=== PATIENT | female | born 1985 | race American Indian/Alaskan Native ===

== ENCOUNTER 2016-11-30 14:13 | Emergency (ER) | payer MEDICAID ==
[2016-11-30 17:49] VITALS: BP 131/75
[2016-11-30] MEDS ORDERED: MOTRIN PO ONE (18:37)
[2016-11-30] MEDS ORDERED: TYLENOL/CODEINE PO ONE (18:37)
--- NOTE | 2016-11-30 18:39 | Emergency Department Report ---
HPI - General Chief Complaint: Eye Problems Time Seen by Provider: 11/30/16 18:13 - HPI HPI: 31-year-old female presents to ED complaining of right eye swelling and pain for the past 3 days. Patient states she is also swelling on her right lower lead. Patient states in the morning she usually noticed a yellow crust or drainage from that eye. Patient states today she is able to open due to decreased amount of crust. She denies fevers/chills/nausea/vomiting/abdominal pain/shortness of breath/ chest pain/headache/blurred vision/loss of vision/foreign object in eye. ED Past Medical Hx - Social History Smoking Status: Never Smoker Substance Use Type: None - Medications Home Medications: Home Medications Medication Instructions Recorded Confirmed Last Taken Type Erythromycin [Erythromycin Ophth 1 applic OP TID #1 tube 11/30/16 Unknown Rx Oint] Ibuprofen [Motrin 800 MG tab] 800 mg PO TID #30 tablet 11/30/16 Unknown Rx ED Review of Systems ROS: Stated complaint: RT EYE PAIN Other details as noted in HPI Constitutional: denies: chills, fever Eyes: denies: eye pain, eye discharge, vision change ENT: denies: ear pain, throat pain Respiratory: denies: cough, shortness of breath, wheezing Cardiovascular: denies: chest pain, palpitations Endocrine: no symptoms reported Gastrointestinal: denies: abdominal pain, nausea, vomiting, diarrhea Genitourinary: denies: urgency, dysuria, frequency, hematuria, discharge Musculoskeletal: denies: back pain, joint swelling, arthralgia Skin: denies: rash, lesions Neurological: denies: headache, weakness, paresthesias Psychiatric: denies: anxiety, depression Hematological/Lymphatic: denies: easy bleeding, easy bruising Physical Exam - Physical Exam Vital Signs: Vital Signs 11/30/16 11/30/16 14:31 17:48 Temperature 98.3 F 98.1 F Pulse Rate 106 H 80 Respiratory 16 16 Rate Blood Pressure 144/93 Blood Pressure 131/75 [Left] O2 Sat by Pulse 99 100 Oximetry Physical Exam: GENERAL: Alert and oriented x3, no apparent distress, Normal Gait, atraumatic. HEAD: Head is normocephalic and a-traumatic. EYES: Extra ocular muscles are intact. Pupils are equal, round, and reactive to light and accommodation. Right lower eyelid swollen, erythematous, tender to palpation. Sclerae is white, no active discharge. No foreign object in eye. MOUTH:Mouth is well hydrated and without lesions. Tonsils nonerythematous or swollen, Uvula midline, Tongue not elevated. Mucous membranes are moist. Posterior pharynx clear, no exudate or lesions. Patent airways. No TMJ tenderness LUNGS: Symetrical with respiration, No wheezing, no rales or crackles, CTAB. HEART: S1, S2 present, regular rate and rhythm without murmur, no rubs, no gallops. SKIN: Warm and dry, No lesions, No ulceration or induration present. ED Course Vital Signs 11/30/16 11/30/16 14:31 17:48 Temperature 98.3 F 98.1 F Pulse Rate 106 H 80 Respiratory 16 16 Rate Blood Pressure 144/93 Blood Pressure 131/75 [Left] O2 Sat by Pulse 99 100 Oximetry ED Medical Decision Making - Medical Decision Making 31-year-old female presents with right lower lid blephritis ED course: Patient received 800 mg of Motrin for pain. Discussed with patient will need antibiotic therapy for right eye. Discussed patient to follow up with primary care physician in 5-7 days Discussed the patient have worsening symptoms to return to ED. Vision is intact bilaterally. Vital signs are normal patient is in no acute distress. Critical care attestation.: If time is entered above; I have spent that time in minutes in the direct care of this critically ill patient, excluding procedure time. ED Disposition Clinical Impression: Blepharitis of eyelid of right eye Qualifiers: Blepharitis type: unspecified type Eyelid: lower Qualified Code(s): H01.002 - Unspecified blepharitis right lower eyelid Disposition: DISCHARGED TO HOME OR SELFCARE Is pt being admited?: No Does the pt Need Aspirin: No Condition: Stable Instructions: Stye (ED), Blepharitis (ED), Heat Pack Application (ED) Prescriptions: Erythromycin [Erythromycin Ophth Oint] 1 applic OP TID #1 tube Ibuprofen [Motrin 800 MG tab] 800 mg PO TID #30 tablet Referrals: PRIMARY CAREMD [Primary Care Provider] - 3-5 Days JAGJIT CHASE MD [Referring] - 3-5 Days [facility] [Outside] - 3-5 Days [facility] [Outside] - 3-5 Days [facility] [Outside] - 3-5 Days Forms: Work/School Release Form(ED) Time of Disposition: 19:00
== END 2016-11-30 19:37 | disposition home or self-care (01) ==
LOC: ED 14:13
DX: H01.002 Unspecified blepharitis right lower eyelid (principal)
CPT/HCPCS: 99283

== ENCOUNTER 2017-03-06 11:43 | Emergency (ER) | payer MEDICAID ==
[2017-03-06 12:20] LABS: Basophils % (Auto) 0.9 % (0.0-1.8); Eosinophils % (Auto) 1.8 % (0.0-4.3); Hematocrit 40.6 % (30.3-42.9); Hemoglobin 13.2 gm/dl (10.1-14.3); Mean Corpuscular HGB Conc 33 % (30-34); Mean Corpuscular Hemoglobin 27 pg (28-32); Mean Corpuscular Volume 83 fl (79-97); Platelet Count 269 K/mm3 (140-440); Red Blood Count 4.88 M/mm3 (3.65-5.03); Red Cell Distribution Width 14.6 % (13.2-15.2); White Blood Count 5.9 K/mm3 (4.5-11.0)
[2017-03-06 12:35] LABS: Anion Gap 17 mmol/L; Blood Urea Nitrogen 7 mg/dL (7-17); Calcium 9.1 mg/dL (8.4-10.2); Carbon Dioxide 27 mmol/L (22-30); Chloride 99.2 mmol/L (98-107); Glucose 70 mg/dL (65-100); Potassium 3.2 mmol/L (3.6-5.0); Sodium 140 mmol/L (137-145)
[2017-03-06 12:39] LABS: Bilirubin,Urine NEG (Negative); Blood,Urine NEG (Negative); Ketones,Urine NEG (Negative); Leukocyte Esterase,Urine TR (Negative); Nitrite,Urine NEG (Negative); Protein,Urine <15 mg/dL mg/dL (Negative); RBC,Urine < 1.0 /HPF (0.0-6.0); Urobilinogen,Urine < 2.0 mg/dL (<2.0)
[2017-03-06] MEDS ORDERED: K-DUR PO ONE (14:58)
[2017-03-06] MEDS ORDERED: NACL 0.9% 1000 ML 1,000 ML IV ONE (15:09)
[2017-03-06] MEDS ORDERED: ANTIVERT PO ONE (15:09)
[2017-03-06] MEDS ORDERED: NACL 0.9% 1000 ML ONE (15:09)
[2017-03-06] MEDS ORDERED: ZOFRAN IV ONE (15:29)
--- NOTE | 2017-03-06 15:31 | Emergency Department Report ---
ED Dizziness HPI - General Chief Complaint: Dizziness Stated Complaint: LIGHTHEADED Time Seen by Provider: 03/06/17 14:57 Source: patient Mode of arrival: Ambulatory Limitations: No Limitations - History of Present Illness Initial Comments: 31-year-old female with a past medical history of hypertension and anxiety presents to the hospital complaining of syncope episode last week and intermittent dizziness 2 weeks. Patient states she had a syncopal episode yesterday while walking to the restroom at her job. Patient had lightheadedness and right temporal pain prior to episode. She denies chest pain , shortness of breath, nausea, vomiting, or diaphoresis. Patient has been having intermittent headache for the last 2 weeks that moves around her head. She denies any headache now. Patient complains of felt lightheaded and also having a spinning sensation with associated nausea but without vomiting. Patient states on occasion she has episodes where she feels like her vision is going black during during dizzy spells, but denies any other repeated syncopal episodes. Having intermittent episodes of her hand shaking uncontrollably and reports difficulty sleeping despite taking the Zoloft that was prescribed by her primary care doctor in October for anxiety. - Related Data Home Medications Medication Instructions Recorded Confirmed Last Taken Hydrochlorothiazide [HCTZ] 25 mg PO QDAY 03/06/17 03/06/17 03/06/17 Labetalol HCl 200 mg PO 03/06/17 03/06/17 Sertraline [Zoloft] 50 mg PO QDAY 03/06/17 03/06/17 03/06/17 Previous Rx's Medication Instructions Recorded Last Taken Type Erythromycin [Erythromycin Ophth 1 applic OP TID #1 tube 11/30/16 03/04/17 Rx Oint] Ibuprofen [Motrin 800 MG tab] 800 mg PO TID #30 tablet 11/30/16 03/06/17 Rx Meclizine [Antivert] 25 mg PO TID PRN #30 tablet 03/06/17 Unknown Rx Ondansetron [Zofran Odt] 4 mg PO Q8HR PRN #20 tab.rapdis 03/06/17 Unknown Rx Allergies Allergy/AdvReac Type Severity Reaction Status Date / Time No Known Allergies Allergy Verified 11/30/16 14:36 ED Review of Systems ROS: Stated complaint: LIGHTHEADED Other details as noted in HPI Comment: All other systems reviewed and negative Other: Constitutional: No fevers chills Eyes: No eye pain visual changes ENT: No ear pain or throat pain Neck: Denies pain Respiratory: Denies cough wheezing shortness of breath Cardiovascular: Denies chest pain, palpitations GI: Denies abdominal pain, vomiting, diarrhea : Denies dysuria Musculoskeletal: Denies back pain Skin: Denies rash, lesions, erythema Neurologic:When necessary Psychiatric: Denies suicidal ideation, hallucinations ED Past Medical Hx - Past Medical History Previous Medical History?: Yes Hx Hypertension: Yes - Surgical History Past Surgical History?: No - Social History Smoking Status: Never Smoker Substance Use Type: None - Medications Home Medications: Home Medications Medication Instructions Recorded Confirmed Last Taken Type Erythromycin [Erythromycin Ophth 1 applic OP TID #1 tube 11/30/16 03/04/17 Rx Oint] Ibuprofen [Motrin 800 MG tab] 800 mg PO TID #30 tablet 11/30/16 03/06/17 Rx Hydrochlorothiazide [HCTZ] 25 mg PO QDAY 03/06/17 03/06/17 03/06/17 History Labetalol HCl 200 mg PO 03/06/17 03/06/17 History Meclizine [Antivert] 25 mg PO TID PRN #30 tablet 03/06/17 Unknown Rx Ondansetron [Zofran Odt] 4 mg PO Q8HR PRN #20 tab.rapdis 03/06/17 Unknown Rx Sertraline [Zoloft] 50 mg PO QDAY 03/06/17 03/06/17 03/06/17 History ED Physical Exam - General Limitations: No Limitations - Other Other exam information: General: No limitations, patient is alert in no acute distress Head exam: Atraumatic, normocephalic Eyes exam: Normal appearance, no nystagmus ENT: Moist mucous membrane, TMs normal bilaterally Neck exam: Normal inspection, full range of motion, no meningismus nontender Respiratory exam: Clear to auscultation bilateral, no wheezes, rales, crackles Cardiovascular: Normal rate and rhythm, normal heart sounds Abdomen: Soft, nondistended, and nontender, with normal bowel sounds, no rebound, or guarding Extremity: Full range of motion normal inspection no deformity, no calf tenderness or edema Back: Normal Inspection, full range of motion, no tenderness Neurologic: Alert, oriented x3, cranial nerves intact, no motor or sensory deficit Psychiatric: normal affect, normal mood Skin: Warm, dry, intact ED Course Vital Signs 03/06/17 03/06/17 03/06/17 11:52 15:30 15:45 Temperature 98.7 F Pulse Rate 101 H 75 80 Pulse Rate [ Lying] Pulse Rate [ Sitting] Pulse Rate [ Standing] Respiratory 16 14 14 Rate Blood Pressure 129/80 124/80 Blood Pressure [Lying] Blood Pressure [Right] Blood Pressure [Sitting] Blood Pressure [Standing] O2 Sat by Pulse 98 100 100 Oximetry 03/06/17 03/06/17 03/06/17 15:47 15:52 18:10 Temperature 98.0 F Pulse Rate 73 Pulse Rate [ 68 Lying] Pulse Rate [ 71 Sitting] Pulse Rate [ 86 Standing] Respiratory 21 14 Rate Blood Pressure Blood Pressure 114/61 [Lying] Blood Pressure 100/60 [Right] Blood Pressure 124/80 [Sitting] Blood Pressure 124/79 [Standing] O2 Sat by Pulse 100 100 Oximetry - Reevaluation(s) Reevaluation #1: 03/06/17 18:24 Patient is a 1 L normal saline, by mouth potassium, and 50mg meclizine. She states she feels a little better ED Medical Decision Making - Lab Data Result diagrams: 03/06/17 12:06 03/06/17 12:06 Lab Results 03/06/17 03/06/17 03/06/17 Range/Units 12:02 12:06 12:06 WBC 5.9 (4.5-11.0) K/mm3 RBC 4.88 (3.65-5.03) M/mm3 Hgb 13.2 (10.1-14.3) gm/dl Hct 40.6 (30.3-42.9) % MCV 83 (79-97) fl MCH 27 L (28-32) pg MCHC 33 (30-34) % RDW 14.6 (13.2-15.2) % Plt Count 269 (140-440) K/mm3 Lymph % (Auto) 34.2 (13.4-35.0) % Gillespie % (Auto) 9.5 H (0.0-7.3) % Eos % (Auto) 1.8 (0.0-4.3) % Baso % (Auto) 0.9 (0.0-1.8) % Lymph # 2.0 (1.2-5.4) K/mm3 Gillespie # 0.6 (0.0-0.8) K/mm3 Eos # 0.1 (0.0-0.4) K/mm3 Baso # 0.1 (0.0-0.1) K/mm3 Seg Neutrophils % 53.6 (40.0-70.0) % Seg Neutrophils # 3.2 (1.8-7.7) K/mm3 Sodium (137-145) mmol/L Potassium (3.6-5.0) mmol/L Chloride (98-107) mmol/L Carbon Dioxide (22-30) mmol/L Anion Gap mmol/L BUN (7-17) mg/dL Creatinine (0.7-1.2) mg/dL Estimated GFR ml/min BUN/Creatinine Ratio % Glucose (65-100) mg/dL POC Glucose 82 (70-105) Calcium (8.4-10.2) mg/dL Magnesium (1.7-2.3) mg/dL HCG, Qual Negative (Negative) Urine Color (Yellow) Urine Turbidity (Clear) Urine pH (5.0-7.0) Ur Specific Greenback (1.003-1.030) Urine Protein (Negative) mg/dL Urine Glucose (UA) (Negative) mg/dL Urine Ketones (Negative) mg/dL Urine Blood (Negative) Urine Nitrite (Negative) Urine Bilirubin (Negative) Urine Urobilinogen (<2.0) mg/dL Ur Leukocyte Esterase (Negative) Urine WBC (Auto) (0.0-6.0) /HPF Urine RBC (Auto) (0.0-6.0) /HPF U Epithel Cells (Auto) (0-13.0) /HPF 03/06/17 03/06/17 03/06/17 Range/Units 12:06 12:06 12:19 WBC (4.5-11.0) K/mm3 RBC (3.65-5.03) M/mm3 Hgb (10.1-14.3) gm/dl Hct (30.3-42.9) % MCV (79-97) fl MCH (28-32) pg MCHC (30-34) % RDW (13.2-15.2) % Plt Count (140-440) K/mm3 Lymph % (Auto) (13.4-35.0) % Gillespie % (Auto) (0.0-7.3) % Eos % (Auto) (0.0-4.3) % Baso % (Auto) (0.0-1.8) % Lymph # (1.2-5.4) K/mm3 Gillespie # (0.0-0.8) K/mm3 Eos # (0.0-0.4) K/mm3 Baso # (0.0-0.1) K/mm3 Seg Neutrophils % (40.0-70.0) % Seg Neutrophils # (1.8-7.7) K/mm3 Sodium 140 (137-145) mmol/L Potassium 3.2 L (3.6-5.0) mmol/L Chloride 99.2 (98-107) mmol/L Carbon Dioxide 27 (22-30) mmol/L Anion Gap 17 mmol/L BUN 7 (7-17) mg/dL Creatinine 0.7 (0.7-1.2) mg/dL Estimated GFR > 60 ml/min BUN/Creatinine Ratio 10.00 % Glucose 70 (65-100) mg/dL POC Glucose (70-105) Calcium 9.1 (8.4-10.2) mg/dL Magnesium 2.20 (1.7-2.3) mg/dL HCG, Qual (Negative) Urine Color Yellow (Yellow) Urine Turbidity Clear (Clear) Urine pH 6.0 (5.0-7.0) Ur Specific Greenback 1.015 (1.003-1.030) Urine Protein <15 mg/dl (Negative) mg/dL Urine Glucose (UA) Neg (Negative) mg/dL Urine Ketones Neg (Negative) mg/dL Urine Blood Neg (Negative) Urine Nitrite Neg (Negative) Urine Bilirubin Neg (Negative) Urine Urobilinogen < 2.0 (<2.0) mg/dL Ur Leukocyte Esterase Tr (Negative) Urine WBC (Auto) 1.0 (0.0-6.0) /HPF Urine RBC (Auto) < 1.0 (0.0-6.0) /HPF U Epithel Cells (Auto) 6.0 (0-13.0) /HPF - EKG Data -: EKG Interpreted by Me (nsr [id number], no stemi) - Radiology Data Radiology results: report reviewed (CT head: naf) - Medical Decision Making Plan to discharge patient home. Will be given meclizine for vertigo or when necessary. Patient informed to eat bananas daily and to drink plenty of water. Follow-up with PMD encouraged - Differential Diagnosis vertigo, VBI, anemia, dehydration, arrhythmia, anxiety Critical Care Time: No Critical care attestation.: If time is entered above; I have spent that time in minutes in the direct care of this critically ill patient, excluding procedure time. ED Disposition Clinical Impression: Dizziness, Hypokalemia Disposition: DC- TO HOME OR SELFCARE Is pt being admited?: No Does the pt Need Aspirin: No Condition: Stable Instructions: Dizziness (ED), Hypokalemia (ED) Additional Instructions: Take the medication as prescribed. Return if symptoms worsen Prescriptions: Meclizine [Antivert] 25 mg PO TID PRN #30 tablet PRN Reason: Vertigo Ondansetron [Zofran Odt] 4 mg PO Q8HR PRN #20 tab.rapdis PRN Reason: Nausea And Vomiting Referrals: PRIMARY CARE, [Primary Care Provider] - 3-5 Days Time of Disposition: 18:26
--- NOTE | 2017-03-06 16:12 | Cat Scan Report ---
FINAL REPORT PROCEDURE: CT HEAD/BRAIN WO CON TECHNIQUE: Computerized tomography of the head was performed without contrast material. HISTORY: dizzy, syncope, vertigo COMPARISON: No prior studies are available for comparison. FINDINGS: The visualized portions of the paranasal sinuses are clear. Mastoid air cells are clear. There is no calvarial fracture. There is no hydrocephalus. No acute intracranial hemorrhage or mass effect is seen. There is no evidence of acute CVA. IMPRESSION: No abnormalities are seen.
[2017-03-06 18:11] VITALS: BP 100/60
== END 2017-03-06 18:37 | disposition home or self-care (01) ==
LOC: ED 11:43
DX: R42 Dizziness and giddiness (principal); E87.6 Hypokalemia; I10 Essential (primary) hypertension
CPT/HCPCS: 36415; 70450; 80048; 81001; 82962; 83735; 84703; 85025; 93005; 93010; 96361; 96374; 99284; J2405; J7030